=== PATIENT | male | born 1965 | race Caucasian/White ===

== ENCOUNTER 2017-12-27 21:52 | Inpatient (IN) | payer SELFPAY ==
[~2017-12-27] VITALS: Ht 170.2 cm; Wt 77.6 kg
[2017-12-27] MEDS ORDERED: ONDANSETRON 4MG ODT PO STA (23:25)
[2017-12-27 23:58] LABS: BASOPHILS % 1.2 % (0.0-2.0); EOSINOPHILS % 0.8 % (0.0-5.0); HEMATOCRIT. 32.7 % (42.0-52.0); HEMOGLOBIN. 11.4 g/dL (14.0-18.0); LYMPHOCYTES % 13.5 % (20.0-50.0); MEAN CORPUSCULAR HEMOGLOBIN 30.7 pg (28.0-32.0); MEAN PLATELET VOLUME 7.4 fl (7.4-10.4); NEUTROPHILS % 77.5 % (40.0-76.0); PLATELET 296 x1000/uL (130-400); RED BLOOD CELL COUNT 3.71 mill/uL (4.7-6.1); RED CELL DISTRIBUTION WIDTH 16.3 % (11.6-14.6)
[2017-12-28 00:06] LABS: CHLORIDE 102 mEq/L (98-107)
[2017-12-28 00:17] LABS: PROTHROMBIN TIME 10.5 sec (9.4-11.6)
[2017-12-28] MEDS ORDERED: MAGNESIUM/ALUMINUM HYDROXIDE/SIMETHICONE 30ML UDC PO PRN (03:45)
[2017-12-28] MEDS ORDERED: MORPHINE SULFATE 4 MG/ML CPJ (NOT FOR IM USE) IV ONE (03:45)
[2017-12-28] MEDS ORDERED: DEXTROSE 50% WATER 50ML SYRINGE IV PRN (03:45)
[2017-12-28] MEDS ORDERED: ONDANSETRON HCL 4MG/2ML VIAL IV PRN (03:45)
[2017-12-28] MEDS ORDERED: ACETAMINOPHEN 325MG TABLET PO PRN (03:45)
[2017-12-28] MEDS ORDERED: BISACODYL 10MG SUPP PR ONE (04:00)
[2017-12-28] MEDS ORDERED: HYDROCODONE/ACETAMINOPHEN 5/325MG TABLET PO PRN (04:15)
[2017-12-28] MEDS ORDERED: BISACODYL 10MG SUPP PR PRN (04:15)
[2017-12-28] MEDS ORDERED: MORPHINE SULFATE 4 MG/ML CPJ (NOT FOR IM USE) IV PRN (04:15)
[2017-12-28] MEDS ORDERED: CLONIDINE 0.1MG TABLET PO PRN (04:15)
[2017-12-28 05:30] VITALS: BP 141/82
[2017-12-28 05:40] VITALS: BP 141/82
[2017-12-28] MEDS: BLOOD SUGAR DIAGNOSTIC STRIP TEST SCH ×3 (06:28→16:59)
[2017-12-28] MEDS: INSULIN LISPRO 100 UNITS/ML SUBCUT SCH ×3 (06:29→16:59)
[2017-12-28 08:43] VITALS: BP 127/57
[2017-12-28] MEDS ORDERED: INSULIN GLARGINE UD 100 UNITS/ML SYR SUBCUT SCH (10:00)
[2017-12-28 12:00] VITALS: BP 133/63
[2017-12-28 16:23] VITALS: BP 135/70
[2017-12-28 16:32] VITALS: BP 104/62
== END 2017-12-28 18:42 | disposition home or self-care (01) | DRG 251 ==
LOC: ER 22:08 → 8WST 12-28 00:55 → EDBEDREQ 12-28 00:58 → ENRESERV 12-28 02:47
PROVIDERS: ADMIT Internal Medicine; ATTEND Internal Medicine
DX: R10.9 Unspecified abdominal pain (principal); N18.6 End stage renal disease; I12.0 Hypertensive chronic kidney disease with stage 5 chronic kidney disease or end stage renal disease; E11.22 Type 2 diabetes mellitus with diabetic chronic kidney disease; R25.2 Cramp and spasm; M54.9 Dorsalgia, unspecified; Z82.49 Family history of ischemic heart disease and other diseases of the circulatory system; Z83.3 Family history of diabetes mellitus; Z99.2 Dependence on renal dialysis
CPT/HCPCS: 36415; 71045; 74176; 80053; 82962; 83605; 83690; 84484; 85025; 85610; 93005; J1815; J2270; J2405; Q0162